=== PATIENT | female | born 1995 | race Caucasian/White ===

== ENCOUNTER → 2016-12-17 | Outpatient (REF) ==
--- NOTE | 2016-12-17 13:33 | REP ---
Clinical: Pain . Technique: AP, lateral, bilateral oblique and sunrise views right knee . Findings: The osseous structures and joint spaces are intact and normal. There is no evidence for acute fracture or dislocation. No joint effusion is appreciated. Surrounding soft tissues are unremarkable. No subcutaneous emphysema or radiodense foreign body. Impression: Normal examination. No acute fracture or dislocation. No overt degenerative changes appreciated. Signed by Milton Ortega MD 12/17/2016 01:24 P
== END ==
LOC: M SMT 13:01
PROVIDERS: ATTEND Internal Medicine
DX: Z02.71 Encounter for disability determination (principal)